=== PATIENT | male | born 1955 | race Caucasian/White ===

== ENCOUNTER 2023-10-24 14:10 | Emergency (ER) | payer OTHER ==
[2023-10-24 14:45] VITALS: BMI 23.0
[2023-10-24 16:06] LABS: POTASSIUM 5.3 mmol/L (3.5-5.1)
[2023-10-24 16:09] LABS: ALBUMIN 3.8 g/dl (3.4-5.0); BLOOD UREA NITROGEN 21.3 mg/dL (7-18)
[2023-10-24 16:13] LABS: BILIRUBIN,TOTAL 0.7 mg/dL (0.2-1); TOT PROT 7.3 g/dl (6.4-8.2)
[2023-10-24] MEDS ORDERED: DEXAMETHASONE SOD PHOSPHATE 10 MG/1 ML VIAL IVPUSH ONE (16:26)
[2023-10-24] MEDS ORDERED: DEXAMETHASONE SOD PHOSPHATE 10 MG/1 ML VIAL ONE (16:32)
[2023-10-24] MEDS ORDERED: levETIRAcetam 500 MG/5 ML INJECTION VIAL IVPB ONE ×2 (16:37→16:44)
[2023-10-24 16:43] LABS: BASO % 0.7 % (0-2.0); HEMATOCRIT 42.1 % (35.4-49); HEMOGLOBIN 14.3 GM/dL (11.7-16.9); LYMPH % 19.2 % (8-40); MCHC 33.9 g/dl (32.0-35.9); MEAN CELL VOLUME 85.3 fl (80-96); MEAN PLT VOLUME 8.8 fl (7.5-11.1); MONO % 6.6 % (3.8-10.2); NEUT % 72.5 % (42.8-82.8); PLATELET COUNT 148 10^3/uL (134-434); RBC 4.93 M/mm3 (4.00-5.60); RDW 13.7 % (11.9-15.9); WHITE BLOOD COUNT 8.1 K/mm3 (4.0-10.0)
[2023-10-24 16:49] LABS: INR 1.15 (0.83-1.09); PROTHROMBIN TIME (PATIENT) 13.3 SEC (9.7-13.0)
[2023-10-24 16:52] LABS: ACTIVATED PTT 26.7 SECONDS (25.2-36.5)
[2023-10-24 17:03] LABS: ALBUMIN 3.6 g/dl (3.4-5.0); CALCIUM 9.2 mg/dL (8.5-10.1)
[2023-10-24 17:04] LABS: BLOOD UREA NITROGEN 20.1 mg/dL (7-18)
[2023-10-24 17:08] LABS: CREATININE 0.9 mg/dL (0.55-1.3)
[2023-10-24 17:10] LABS: BILIRUBIN,TOTAL 0.7 mg/dL (0.2-1); TOT PROT 6.4 g/dl (6.4-8.2)
[2023-10-24 18:21] VITALS: RESP 18; TEMP 98.2
[2023-10-24 20:38] VITALS: BP 141/84; PULSE 62
== END 2023-10-24 20:44 | disposition short-term general hospital (02) ==
LOC: JER 14:10
PROC: 3E033NZ Introduction of Analgesics, Hypnotics, Sedatives into Peripheral Vein, Percutaneous Approach (ICD-10-PCS; principal; 2023-10-24)
PROC: 3E033GC Introduction of Other Therapeutic Substance into Peripheral Vein, Percutaneous Approach (ICD-10-PCS; 2023-10-24)
DX: I62.9 Nontraumatic intracranial hemorrhage, unspecified (principal); G93.5 Compression of brain; Z20.822 Contact with and (suspected) exposure to COVID-19
CPT/HCPCS: 36415; 70450-TC; 80053; 82607; 85025; 85610; 85730; 86850; 86900; 86901; 87635; 99285-25; J1100